=== PATIENT | female | born 1995 | race Caucasian/White ===

== ENCOUNTER 2016-10-15 09:17 | Emergency (ER) | payer MEDICAID ==
[~2016-10-15] VITALS: Ht 167.6 cm; Wt 68.0 kg
[2016-10-15 09:27] VITALS: BP 143/85
--- NOTE | 2016-10-15 10:07 | NUR ---
Patient discharged to home in stable condition. Written and verbal after care instructions given. Patient verbalizes understanding of instruction.
== END 2016-10-15 10:09 | disposition home or self-care (01) ==
LOC: ER 09:19
DX: S00.12XA Contusion of left eyelid and periocular area, initial encounter (principal); L30.9 Dermatitis, unspecified; F32.9 Major depressive disorder, single episode, unspecified; Z91.048 Other nonmedicinal substance allergy status
CPT/HCPCS: A4606; Z7610